=== PATIENT | female | born 2000 | race Caucasian/White ===

== ENCOUNTER 2020-07-14 13:19 | Emergency (ER) | payer SELFPAY ==
[2020-07-14 13:32] VITALS: TEMP 97.4; O2SAT 99
--- NOTE | 2020-07-14 13:39 | ED.PDOC ---
History of Present Illness - General Chief Complaint: GI Problem Stated Complaint: N/V/D,SUERO,Fatigue Time Seen by Provider: 07/14/20 13:30 Information Source: patient Exam Limitations: no limitations Additional Information: Pt says she's had N/V/D intermittently over the past 2+ weeks. Pt says watery stool. Pt says yesterday she felt really weak and had trouble getting out of bed. Today, however, she feels a lot better, closer to baseline. She denies fever, abd pain, urinary symptoms, weight loss. Pt says she's had no N/V/D today. Pt denies sore throat, cough, SOB, CP. Pt says her periods have been normal. Pt declining all workup because she doesn't feel it's necessary (since she feels better today). She understands I cannot r/o underlying emergent issues without some workup, but she still declines. She is willing to accept the risk. - History of Present Illness Worsening Factors: nothing Associated Symptoms: diarrhea, nausea/vomiting, weakness Review of Systems - Review of Systems Constitutional: States: weakness. Denies: chills, fever EENTM: Denies: ear pain, nose pain, nose congestion, throat pain Respiratory: States: no symptoms reported. Denies: cough, short of breath, wheezing Cardiology: States: no symptoms reported. Denies: chest pain, edema, palpitations, syncope Gastrointestinal/Abdominal: States: diarrhea, nausea, vomiting. Denies: abdominal pain, constipation Genitourinary: States: no symptoms reported. Denies: discharge, dysuria, frequency, hematuria, pain Musculoskeletal: Denies: joint pain, muscle pain Skin: States: no symptoms reported Neurological: States: no symptoms reported Endocrine: States: no symptoms reported Past Medical History (General) - Patient Medical History Hx Stroke: No Hx Congestive Heart Failure: No Hx Diabetes: No - Vaccination History Hx Influenza Vaccination: Yes - 2019 - Social History Hx Tobacco Use: Yes - Female History Patient is a Female of Child Bearing Age (10 -59 yrs old): Yes Family Medical History - Family History Mother Family History: Unknown Living Status: Unknown Physical Exam - Physical Exam General Appearance: Alert, No apparent distress Eyes, Ears, Nose, Throat Exam: PERRL/EOMI, pharynx normal Neck: non-tender, full range of motion Respiratory: chest non-tender, lungs clear, normal breath sounds, no respiratory distress, no accessory muscle use Cardiovascular/Chest: normal peripheral pulses, regular rate, rhythm, no edema, no gallop Peripheral Pulses: No deficit Gastrointestinal/Abdominal: normal bowel sounds, non tender, soft, no organomegaly Neurologic: alert, normal mood/affect, oriented x 3 Skin Exam: normal color, warm/dry Departure - Departure Clinical Impression: Nausea, vomiting and diarrhea, Weakness Time of Disposition: 13:41 Disposition: Discharge to Home or Self Care Condition: Excellent Departure Forms: ED Discharge - Pt. Copy, Patient Portal Self Enrollment, Work Release Form Diet: full liquid diet, bland diet Activity: increase activity as tolerated Prescriptions: Promethazine Tab [Phenergan Tablet] 25 mg PO Q6HR #20 tab Home Medications: Ambulatory Orders Promethazine Tab [Phenergan Tablet] 25 mg PO Q6HR #20 tab 07/14/20
[2020-07-14 13:59] VITALS: BP 133/72
== END 2020-07-14 13:50 | disposition home or self-care (01) ==
LOC: ER 13:19
DX: R11.2 Nausea with vomiting, unspecified (principal); R19.7 Diarrhea, unspecified; R53.1 Weakness; Z87.891 Personal history of nicotine dependence